=== PATIENT | female | born 1970 | race Caucasian/White ===

== ENCOUNTER 2017-03-13 21:05 | Emergency (ER) | payer BC ==
[~2017-03-13] VITALS: Ht 167.6 cm; Wt 63.5 kg
--- NOTE | 2017-03-13 21:15 | NUR ---
PT AMBULATED TO THE BATHROOM, BUT WAS NOT ABLE TO GIVE A URINE SAMPLE. PT APPEARS DROWSY, SLOW TO SPEAK. PT'S FRIEND IS WITH HER AND STATED THAT THE PT FELL A WEEK AGO IN 06-05. PT WAS NOT TAKEN TO THE HOSPITAL AT THAT TIME. PT FELL AGAIN YESTERDAY, AND IS NOW NOT ACTING NORMALLY. PT AMBULATED TO BED #2. DR. MUÑOZ IS AT THE BEDSIDE.
--- NOTE | 2017-03-13 21:35 | NUR ---
[facility] WA[facility] SIGNED.
--- NOTE | 2017-03-13 21:38 | NUR ---
PT LEFT FOR CT VIA GURNEY.
--- NOTE | 2017-03-13 21:44 | NUR ---
PT RETURNED FROM CT.
--- NOTE | 2017-03-13 21:48 | NUR ---
DR. MUÑOZ IS SPEAKING WITH THE PT'S BROTHER AND FRIEND.
--- NOTE | 2017-03-13 21:51 | NUR ---
PT'S BROTHER IS SPEAKING TO THE PT RE: BLOOD DRAW. PT APPEARS UPSET AND IS SAYING "NO". "I WANT TO GO".
--- NOTE | 2017-03-13 22:06 | NUR ---
Patient does not wish to proceed with medical care recommended by Dr. MUÑOZ. Patient given information related to possible complications, up to and including , which could occur as a result of leaving the hospital at this time. Patient verbalizes understanding of risks involved due to leaving against medical advice. Patient has signed AMA form. Patient LEFT WITH HER FRIEND AND HER BROTHER. Written and verbal after care instructions given. Patient verbalizes understanding of instruction. VSS.
[2017-03-13 22:08] VITALS: BP 98/56
== END 2017-03-13 22:08 | disposition left against medical advice (07) ==
LOC: ER 21:08
DX: R41.82 Altered mental status, unspecified (principal)
CPT/HCPCS: 70450-TC; A4606; Z7610

== ENCOUNTER 2021-01-17 13:49 | Emergency (ER) | payer BC, MEDICAID ==
[~2021-01-17] VITALS: Ht 167.6 cm; Wt 74.8 kg
[2021-01-17 13:57] VITALS: BP 113/67
[2021-01-17] MEDS ORDERED: AMOX500C2 PO (14:21)
[2021-01-17] MEDS ORDERED: ESCI10TA PO (14:21)
[2021-01-17] MEDS ORDERED: IBUP-1955 PO (14:22)
== END 2021-01-17 14:28 | disposition home or self-care (01) ==
LOC: ER 13:49
DX: K08.89 Other specified disorders of teeth and supporting structures (principal); F32.9 Major depressive disorder, single episode, unspecified; G43.909 Migraine, unspecified, not intractable, without status migrainosus; Z76.0 Encounter for issue of repeat prescription; Z79.899 Other long term (current) drug therapy